=== PATIENT | male | born 2000 | race African-American/Black ===

== ENCOUNTER 2023-01-28 18:56 | Emergency (ER) | payer OTHER, SELFPAY ==
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
[2023-01-28 19:11] VITALS: BP 129/79; PULSE 85; RESP 18; TEMP 37.2; O2SAT 99
== END 2023-01-28 19:30 | disposition home or self-care (01) ==
PROVIDERS: Emergency Provider Nurse Practitioner
DX: K52.9 Noninfective gastroenteritis and colitis, unspecified (principal)
CPT/HCPCS: 99203; G0463